=== PATIENT | female | born 1930 | race Caucasian/White ===

== ENCOUNTER 2016-07-02 11:22 | Emergency (ER) | payer MEDICARE, OTHER ==
[~2016-07-02] VITALS: Ht 157.5 cm; Wt 67.7 kg
[2016-07-02 11:22] VITALS: TEMP 97.9; Ht 157.5 cm; Wt 67.7 kg
[~2016-07-02 11:22] MED LIST: AMLO5TAB2 PO; ASPI-715 PO; CEPH-583 PO; DONE10TA30 PO; FISH1CAP29 PO; OXAZ10CA PO; PROP80CA2 PO; RAMI10CA24 PO; SERT50TA12 PO; SIMV10TA76 PO; UBID100C10 PO
--- OUTSIDE RECORDS SUMMARY | 2016-07-02 11:26 | XMS REPORT | Continuity of Care Document ---
Author Author [facility] Organization [facility] Address Unknown Phone Unavailable Support Name Relationship Address Phone COCO PIZANO Caregiver [address] [place] [address] Unavailable JAGDISH REGAN MD Caregiver [address] [place] [address] [place] [id number] Unavailable LACHELLERNEAE Next Of Kin Unknown [phone] Insurance Providers Guarantor Zbigniew Ga Address [address] [place] [address] Email DENIED/NO TO PT PORT P[facility] Policy Number [id number] Subscriber's Name Zbigniew Ga Relationship 18 Self Group Number [id number] Effective Date 05 Payer Medicare Policy Number [id number] Subscriber's Name Zbigniew Ga Relationship 18 Self Effective Date 97 Advance Directives Directive Response Recorded Date/Time Advanced Directives Type None 01/11/16 10:55am Chief Complaint and Reason for Visit Chief Complaint Skin Injury Reason for Visit Laceration of elbow Problems Active Problems Medical Problem Onset Date Status Altered mental status Unknown Resolved Anxiety Unknown Chronic Bandemia Unknown Resolved Chronic kidney disease, stage III (moderate) Unknown Resolved 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 Unknown Chronic Diabetes Unknown Chronic Diverticulitis of colon with perforation 06/17/2015 Resolved Edema Unknown Hyperglycemia Unknown Resolved Hypertension Unknown Chronic Hypokalemia Unknown Resolved Ileus following gastrointestinal surgery Unknown Resolved Incisional abscess 06/26/2015 Chronic Insomnia Unknown Leukocytosis Unknown Resolved Neurocognitive disorder Unknown Neurocognitive disorder Unknown Pain, chronic postoperative Unknown Urinary retention with incomplete bladder emptying Unknown Resolved Wound infection after surgery Unknown Past Problems Medical Problem Onset Date Laceration of elbow Unknown Medications Current Home Medications Medication Dose Units Route Directions Days Qty Instructions Start Date Amlodipine Besylate 5 Mg Tablet 5 Mg Oral Twice A Day 01/11/16 Aspirin (Aspirin Ec) 81 Mg Tablet. 81 Mg Oral Daily 05/25/09 Cephalexin (Keflex) 500 Mg Capsule 1 Cap Oral Three Times A Day 21 Capsule 01/11/16 Donepezil Hcl 10 Mg Tablet 10 Mg Oral Bedtime 01/11/16 Fish Oil/[place]-3 Fatty Acids (Fish Oil 1,000 Mg Capsule) 1 Cap Capsule 1 Cap Oral Twice A Day 01/12/12 Oxazepam (Serax) 10 Mg Capsule 10 Mg Oral Bedtime 01/12/12 Propranolol Hcl 80 Mg Cap.sa.24h 80 Mg Oral Daily 01/11/16 Ramipril 10 Mg Capsule 10 Mg Oral Daily 01/11/16 Sertraline Hcl (Sertraline) 50 Mg Tablet 25 Mg Oral Daily Simvastatin 10 Mg Tablet 10 Mg Oral Bedtime 01/12/12 Ubidecarenone (Coq-10) 100 Mg Capsule 100 Mg Oral Daily 01/12/12 Past Home Medications Medication Directions Ordered Status Cholesterol Med , 05/25/09 Discontinued Cinnamon Bark (Cinnamon) 500 Mg Capsule, 500 Mg Oral Daily 01/12/12 Discontinued Estradiol , 05/25/09 Discontinued Fortacal , 05/25/09 Discontinued Vitamin , 05/25/09 Discontinued Social History Social History Problem Response Recorded Date/Time Onset Date Status Chewing Tobacco Status No 01/12/2012 2:49pm Not Applicable Not Applicable Hx Substance Use No 01/11/2016 10:55am Not Applicable Not Applicable Hx Alcohol Use No 01/11/2016 10:55am Not Applicable Not Applicable Has the pt used tobacco in the last 12 months No 06/17/2015 3:18am Not Applicable Not Applicable Tobacco Usage none 06/30/2015 12:53pm Not Applicable Not Applicable Query Response Start Date Stop Date Smoking Status Never smoker Hospital Discharge Instructions No hospital discharge instructions. Plan of Care Discharge Date 01/11/16 1:23pm Disposition 01 DISCHARGED HOME, SELF-CARE Condition at Discharge Stable Instructions/Education Provided DI for Laceration Repair Prescriptions See Medication Section Referrals COCO PIZANO Address: [address] [place] [address] Additional Instructions/Education Wash the wound daily with soap and water. I do want you to keep it covered with a thin layer of antibiotic ointment and gauze. Take the Keflex as prescribed for infection prevention. Follow up with your primary care provider in 14 days for suture removal. Care Plan and Goals Physician Care Plan Problem:Elbow Laceration Goal: Follow up with primary care provider Instructions: Take medications and follow care plan as discussed/written Functional Status No functional status results. Allergies, Adverse Reactions, Alerts Allergen Type Severity Reaction Status Last Updated No Known Drug Allergies Allergy Unknown Active 01/11/16 Immunizations Query Response on File Recorded Date/Time Hx Influenza Vaccination Y MAR 2015 06/17/15 3:18am Hx Pneumococcal Vaccination Y ON FILE WITH COCO PIZANO 06/17/15 3:18am Hx Influenza Vaccination Y MAR 2015 06/17/15 3:18am Influenza Vaccine Hx fall 201401/11/16 10:55am Vital Signs Acute Vital Signs Vital Response Date/Time Temperature (Fahrenheit) 98.1 deg F (96.8 - 99.1) 01/11/2016 1:23pm Temperature (Calculated Celsius) 36.91937 degrees C (36.0 - 37.3) 01/11/2016 1:23pm Pulse Rate (adult) 59 bpm (60 - 100) 01/11/2016 1:23pm Respiratory Rate 15 breaths/min (10 - 20) 01/11/2016 1:23pm O2 Sat by Pulse Oximetry 96 % (90 - 100) 01/11/2016 1:23pm Blood Pressure 159/75 mm Hg 01/11/2016 1:23pm Height (Feet) 5 feet 01/11/2016 10:55am Height (Inches) 2.00 inches 01/11/2016 10:55am Weight (Kilograms) 63.000 kg 01/11/2016 10:55am Body Mass Index (BMI) 25.0 01/11/2016 10:55am Results No known relevant diagnostic tests, laboratory data and/or discharge summary. Procedures No known history of procedures. Encounters Encounter Location Arrival/Admit Date Discharge/Depart Date Attending Provider Departed Emergency Room [facility] 01/11/16 10:53am 01/11/16 1: 23pm JAGDISH REGAN MD Recent Diagnosis
[2016-07-02] MEDS ORDERED: ATOR10TA64 PO (11:34)
--- NOTE | 2016-07-02 12:20 | ERPDOC ---
Departure Disposition Decision Date: July 02, 2016 Disposition Decision Time: 14:03 (AKBAR FLEMING APRN) Disposition: 01 DISCHARGED HOME, SELF-CARE Impression Impression (AKBAR FLEMING APRN) Impression: Primary Impression: Laceration of ear Encounter type: initial encounter Laterality: left Qualified Codes: S01.312A - Laceration without foreign body of left ear, initial encounter Additional Impressions: Scalp laceration Encounter type: initial encounter Qualified Codes: S01.01XA - Laceration without foreign body of scalp, initial encounter Head injury Encounter type: initial encounter Qualified Codes: S09.90XA - Unspecified injury of head, initial encounter Severity: Moderate (AKBAR FLEMING APRN) Condition: Stable Seen By: Mid-level only (AKBAR FLEMING APRN) Referrals: COCO PIZANO (Family) Patient Instructions: Head Injury (ED), Laceration (ED) Problems/Meds/Labs Reviewed?: Yes Medications reviewed and manag: Yes (AKBAR FLEMING APRN) Additional Instructions: Have the cynthia removed in 7 days with your primary care provider. Have the sutures taken out in 10-14 days with your primary care provider. May wash daily with soap and water. Take the Keflex for infection prevention. If any increased redness/swelling/or tenderness then return to ER. Follow up care ordered?: Yes Mental Status: Alert, Oriented (AKBAR FLEMING APRN) Scripts Cephalexin (Keflex) 500 Mg Capsule 1 CAP PO TID, #15 CAP 0 Refills Prov: AKBAR FLEMING APRN 07/02/16 HPI - Fall/Injury General Chief Complaint: Fall Stated Complaint: HEAD LACERATION Time Seen by Provider: 12:05 Source: patient Exam Limitations: no limitations (AKBAR FLEMING APRN) Time Seen by Provider: 12:05 (PRESTON ARDON DO) HPI - Fall/Injury Initial Comments She was at [employer] today and she stumbles and fell down some steps. She hit the left side of her head on a flower stand. Did not have any LOC. Does have a laceration on the left ear that does extend into the cartilage. She also had a laceration with hematoma on the left scalp as well. Does not take any blood thinners. Does not know when her last tetanus vaccination was. Occurred At: home Onset: Rapid Duration: 1 hr Severity: moderate Injuries/Pain Location: head Context: unknown Loss of Consciousness: no loss of consciousness Associated Symptoms: DENIES: abdominal pain, chest pain, confusion, dizziness, headache, lightheadedness, muscle spasms, nausea/vomiting, neck pain, ringing in ears, seizures, shortness of breath, slurred speech, trouble walking, vision changes Hx of Similar Symptoms: No (NOLD,AKBAR N MEDICAL DRIVER) Allergies: Coded Allergies: No Known Drug Allergies (Verified Allergy, Unknown, 07/02/16) Past History Past Medical History Metabolic: diabetes Cardiac: other GI: other Musculoskeletal: osteoarthritis Integumentary: other Psychological: anxiety (NOLD,AKBAR N MEDICAL DRIVER) Surgical History Joint: other (NOLD,AKBAR N MEDICAL DRIVER) Vaccines Hx Influenza Vaccination: Yes (MAR 2015) Hx Pneumococcal Vaccination: Yes (ON FILE WITH COCO PIZANO) (NOLD,AKBAR N MEDICAL DRIVER) Social History Does patient use chewing tobac: No Substance Use Type: does not use Alcohol Intake: none (NOLD,AKBAR N MEDICAL DRIVER) Review of Systems Constitutional Constitutional: DENIES: chills, dizziness, fatigue, fever, weakness (NOLD, AKBAR N MEDICAL DRIVER) Eyes Vision: DENIES: blurring, double vision (NOLD,AKBAR N MEDICAL DRIVER) ENMT Ears: pain, DENIES: drainage Sinuses: DENIES: congestion, rhinorrhea Mouth/Throat: DENIES: painful swallowing, scratchy throat, sore throat (NOLD, AKBAR N MEDICAL DRIVER) Cardiovascular Cardiac: DENIES: chest pain, dyspnea on exertion Rhythm/Rate: DENIES: irregular beat, palpitations (NOLD,AKBAR N MEDICAL DRIVER) Pulmonary Respiratory: DENIES: cough, dyspnea, sputum (NOLD,AKBAR N MEDICAL DRIVER) GI Upper Abdomen: DENIES: nausea, pain, vomiting Lower Abdomen: DENIES: constipation, diarrhea, pain (NOLD,AKBAR N MEDICAL DRIVER) Neurological General: DENIES: headache, numbness, tingling, weakness (NOLD,AKBAR N MEDICAL DRIVER) Physical Exam General General Nourishment: well nourished, well developed, appears stated age, no acute distress, adult General Body Habitus: well groomed (AKBAR FLEMING APRN) Vitals and Pain First Documented Vital Signs Date Time Temp Pulse Resp B/P Pulse Ox O2 Delivery O2 Flow Rate FiO2 07/02/16 11:22 97.9 62 19 153/67 94 Room Air (PRESTON ARDON DO) Vitals and Pain Weight: Kilograms: 67.700 Height (feet): 5 Height (inches): 2.00 Triage Pain Scale: (AKBAR FLEMING APRN) RN VS reviewed by Provider: Yes (AKBAR FLEMING APRN) Normal Exams: Eyes: Pupils are PERRLA w/ EOMI, No scleral icterus, irritation, or foreign bodies noted ENMT: No facial trauma, nasal exudates, pharyngeal erythema, or exudates are noted Neck: Full range of motion, without adenopathy, JVD, bruits or thyromegaly Chest/Resp: Clear all guzman, with good airflow, and symmetry bilaterally CV: Regular rate and rhythm, without murmur or gallop, Pulses 2+ all extremities, capillary refill, <2 seconds all ext., no pedal edema noted Abdomen: Bowel sounds positive, soft, non-tender, non-distended, no hepatosplenomegaly, masses or bruits noted Lymphatic: No lymphadenopathy, or lymphedema noted Musculoskeletal: No tenderness, or deformity noted, good range of motion, all extremities Neurologic: Patient is alert Psychiatric: Patient exhibits, appropriate attention, emotion and affect (AKBAR FLEMING APRN) ENMT (brief) ENMT Brief: FOUND: TM clear, TM good light reflex, ear canals clear, mucosa moist, normal dentition, normal tonsils, NOT FOUND: lesions, nasal erythema, nasal exudate, nasal swelling, petechiae, pharnyx erythema, tonsillar deviation (AKBAR FLEMING MEDICAL DRIVER) Integumentary (brief) Integumentary Brief: FOUND: other (She has a laceration on the left scalp as well as a laceration on the pinna of the left ear that does extend all the way throught the cartilage) (AKBAR FLEMING N MEDICAL DRIVER) Differential Diagnoses Considering: Concussion, Contusion, Epidural Hematoma, Fracture, Subdural Hematoma, Other (Laceration) (AKBAR FLEMING MEDICAL DRIVER) Procedures Procedures Performed Procedures Performed: Laceration Repair (AKBAR FLEMING APRN) Laceration/Wound Repair Wound/Laceration Repair #1: Wound Location: head (left scalp) Wound Length (cm): 2 Depth, Shape: subcutaneous, linear Explored: clean Irrigated: saline Prep: chlorasept Anesthesia: 1% Lidocaine Type of Block: local Repaired With: [place] Number of Sutures: 3 Layer Closure?: No Wound/Laceration Repair #2: Wound Location: head (left ear) Wound Length (cm): 4 Depth, Shape: subcutaneous (with cartilage exposed), stellate Explored: clean Irrigated: saline (100ml) Prep: chlorasept Anesthesia: 1% Lidocaine Volume Anesthetic (ccs): 1 Type of Block: local Repaired With: Sutures Suture Size: 6:0 Number of Sutures: 10 Layer Closure?: No (AKBAR FLEMING APRN) Progress Results/Orders Orders Procedure Category Date Status Time Ct Head W/O Contrast CT 07/02/16 Resulted Lidocaine 1% PHA 07/02/16 Complete (Xylocaine 1%) 13:15 Dressing (Ed) EDM 07/02/16 Transmitted 14:02 Neomycin/Polymyxin/Bacitracin PHA 07/02/16 Complete (Neosporin 14:15 (PRESTON ARDON DO) Medications Current ED Medications Lidocaine HCl (Xylocaine 1%) 100 mg O ONCE INFIL Last administered on t 13:38; Start 07/02/16 at 13:15; Stop 07/02/16 at 13:16; Status DC Neomycin/ Polymyxin/ Bacitracin (Neosporin) 1 applic O ONCE TOP Last administered on 07/02/16t 14:12; Start 07/02/16 at 14:15; Stop 07/02/16 at 14:16 ; Status DC (PRESTON ARDON DO) Progress Progress Ct of her head today is normal. I did offer to ask a plastic surgeon to come and evaluate for repair of the ear given the exposed cartilage. She states that she is not concerned about the cosmetic results and so does not want to have plastic surgery fix the ear laceration. Did close the ear laceration with sutures and the scalp laceration with cynthia today. Will have her follow up with PCP in 7 days for staple removal and 10 days for suture removal. I am going to have her take some Keflex for infection prevention given the exposed cartilage. She did have a tetanus update on March of this year. (AKBAR FLEMING APRN) CT CT : Reason for Exam: head injury CT: Head no contrast Interpretation: Normal (AKBAR FLEMING APRN) AKBAR FLEMING APRN July 02, 2016 12:20 PRESTON ARDON DO July 02, 2016 15:56
--- NOTE | 2016-07-02 12:30 | NUR ---
CT PATIENT TO CT PER CART, STABLE.
--- NOTE | 2016-07-02 12:37 | NUR ---
RETURN PATIENT BACK FROM RADIOLOGY PER CART, STABLE.
--- NOTE | 2016-07-02 12:48 | DI ---
Indication: ITS.REASON: fall, head injury PROCEDURE: CT HEAD W/O CONTRAST: Encounter: Initial Comparison: June 23, 2015 Technique: Axial CT images through the head were performed without contrast. Iterative Reconstruction dose reducing technique was utilized. FINDINGS: Moderate atrophy. The ventricles are unchanged. 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 There is no evidence of acute intracranial hemorrhage, midline displacement, or mass effect. There are scattered areas of low attenuation in the white matter which most likely represent changes of chronic microvascular ischemia. The CT attenuation of the brain parenchyma is otherwise normal within the cerebellum, brain stem, and cerebral hemispheres. The tympanic cavities and mastoid air cells are free of appreciable disease. There are no definite fractures of the skull base, calvarium, or visualized portion of the midface. IMPRESSION: No CT evidence of acute traumatic intracranial injury. .
[2016-07-02] MEDS ORDERED: LIDOCAINE 1% (10mg/ml) 30ml SDV INFIL ONE (13:15)
--- NOTE | 2016-07-02 13:31 | NUR ---
PROVIDER N NOLD MATERIAL DAMAGE ADJUSTER AT BEDSIDE TO SUTURE
[2016-07-02] MEDS ORDERED: CEPH-583 PO (14:05)
[2016-07-02] MEDS ORDERED: NEOMYCIN/POLYM/BACITR OINT PACKET TOP ONE (14:15)
[2016-07-02 14:17] VITALS: BP 153/67; PULSE 65; RESP 19; O2SAT 95
== END 2016-07-02 14:17 | disposition home or self-care (01) ==
LOC: ED 11:22
DX: S01.312A Laceration without foreign body of left ear, initial encounter (principal); S01.01XA Laceration without foreign body of scalp, initial encounter; W10.8XXA Fall (on) (from) other stairs and steps, initial encounter; Y93.9 Activity, unspecified; Y92.22 Religious institution as the place of occurrence of the external cause; Y99.8 Other external cause status
CPT/HCPCS: 12001; 12013; 70450; 99284; A9270